=== PATIENT | female | born 1960 | race African-American/Black ===

== ENCOUNTER 2024-10-02 23:55 | Inpatient (IN) | payer MEDICARE, SELFPAY ==
--- NOTE | ~2024-10-02 | CT_ITS ---
CLINICAL HISTORY: sharp head pain CT head without contrast Comparison: None Findings: No acute hemorrhage. Basal ganglia calcifications. No extra-axial fluid collection. No hydrocephalus, mass-effect or herniation. Velázquez-white differentiation is maintained. White matter is within normal limits for age. No acute orbital pathology. No acute soft tissue abnormality. No fracture. The visualized paranasal sinuses are predominantly clear. The mastoid air cells are clear. Impression: No acute findings. This document has been electronically signed by: Louann Prado MD on 10/03/2024 18:16:40
[2024-10-03 00:19] VITALS: BMI 33.2
[2024-10-03 00:22] VITALS: BP 150/87; PULSE 102; RESP 16; TEMP 36.6; O2SAT 98
--- NOTE | 2024-10-03 01:28 | PC.NURSE ---
Admission Note Rupa Raman, 64 years old woman was presented to [facility] ED for suicidal ideation with plan and intent to OD on sleeping meds, she made suicidal statements to her landlord, triggered by eviction notice news. The patient lives with her daughter. The patient has a medical and psychiatric history of Hypertension, Asthma, Fibromyalgia, unspecified depression, and Schizoaffetic Disorder, depressive type. The patient is full code and has no known allergies. Rupa arrived at our unit in a stretcher at 1210 on 10/03/24, Sec-12 B, with an admitting diagnosis of Schizoaffective disorder, depressive type. The patient is alert and oriented x 4,? calm, pleasant, compliant with the admission process.? Ambulates independently with walker, high fall risk due to recent fall at home, Denied HI/AVH, reported her depression 10 and anxiety 07/02,? no visible skin issues observed,? Meds rec completed/approved/MAR active/takes meds whole, reported her elimination intact.? Lab work is unremarkable, UA negative, Utox positive for THC(use balm), treatment plan/safety tool/ release paper/notice of rights of temporary involuntary hospitalization all signed and filed, unit orientation completed, contraband searched, patient contracted for the safety, patient is being observed on 5 minutes safety check as ordered.?
[2024-10-03] MEDS: ALPRAZolam 0.5 MG TABLET 1 MG PO ×2 (02:14→21:02)
[2024-10-03 07:39] LABS: Alanine Aminotransferase 11 U/L (0-31); Alkaline Phosphatase 47 U/L (39-117); Anion Gap 11 (12-20); Aspartate Amino Transferase 16 U/L (5-31); Bilirubin Total 0.5 mg/dL (0.0-1.0); Blood Urea Nitrogen 24 mg/dL (9-16); Calcium 8.6 mg/dL (8.4-10.2); Carbon Dioxide 25 mmol/L (22-29); Chloride 106 mmol/L (96-108); Creatinine Clr Calc Pharmacy 58.7; Estimated Glomerular Filt Rate 55; Glucose Random 108 mg/dL (60-115); Potassium 3.4 mmol/L (3.3-5.1); Sodium 139 mmol/L (135-145); Total Protein 6.9 g/dL (6.5-8.0)
[2024-10-03 08:38] VITALS: BP 130/63; PULSE 102; RESP 18; TEMP 36.9; O2SAT 100
[2024-10-03] MEDS: Famotidine 20 MG TABLET PO ×2 (08:44→20:56)
[2024-10-03] MEDS: Valsartan 80 MG TABLET PO (08:44)
[2024-10-03] MEDS: Gabapentin 300 MG CAPSULE 600 MG PO ×3 (08:44→20:57)
[2024-10-03] MEDS: DULoxetine HCl 30 MG CAPSULE.DR PO (08:44)
[2024-10-03] MEDS: amLODIPine Besylate 10 MG TABLET PO (08:44)
--- NOTE | 2024-10-03 12:13 | HO.PM.IMCN ---
History of Present Illness Data of Consult Service Date: 10/03/24 Primary Care Provider: Unknown Physician [facility] Reason for consult: Admission H&P Pt is a 64-year-old female with a PMH significant for?asthma, HTN, fibromyalgia, GERD, and depression who is admitted to [facility] for increased depression with SI and HI. Pt apparently was facing eviction and reported to her landlord SI with intent to overdose on sleeping medications. Pt also endorsed HI with wanting to kill her family since she believed they were trying to kill her. Medical consult for admission H&P. Pt overall is a rather poor and vague historian. Reports taking some for medications at home, though also seemingly indicates that she has stopped home medications because she did not think that she needed them any longer. Overall medication compliance uncertain. Pt complains of almost daily intermittent headaches that come and go of varying duration, no clear alleviating or precipitating factors. Also complains of chronic left foot pain she states is secondary to bone spurs. Also occasionally gets palpitations and shortness a breath, though nothing currently acute. No chest pain or pressure. Denies fever, chills, nausea, vomiting, abdominal pain. Denies acute vision changes. Currently no difficulty breathing. Review of Systems Review of Systems: Negative except for that which is stated in the HPI [facility] Medical History (Updated 10/03/24 @ 14:17 by ANA Falcon) Asthma Fibromyalgia Hypertension Social History Household Members: Children Housing: Apartment Do you presently have visiting nurse or other home services: No Patient Tobacco Use Status: Never used Tobacco e-Cigarette/Vaping Use: Never Used Use of substances other than those prescribed or required for medical reasons: Yes Substance Use Type: Marijuana Currently Displaying Signs/Symptoms of Drug Intoxication Withdrawal: No Have you been hit, kicked, punched, or otherwise hurt by someone within the past year? If so, by whom?: No Do you feel safe in your current relationship?: No Current Relationship Is there a partner from a previous relationship who is making you feel unsafe now?: No Advance Directives: No Advance Directives Information Provided: Yes Do you have thoughts of harming others: None Do you have a plan to hurt others: No Plan Recently lost weight without trying: Unsure How much weight loss: 2-13 pounds Eating poorly because of decreased appetite: Yes Nutrition screen score: 4 Nutrition Risks: Poor intake 0-25% >4 days Patient : No : No Poor oral hygiene: No Meds Allergies Allergy/AdvReac Type Severity Reaction Status Date / Time No Known Allergies Allergy Verified 10/02/24 23:59 Active Medications: Current Medications Acetaminophen (Acetaminophen 325 Mg Tablet) 650 mg PO Q6H PRN PRN Reason: Headache/Pain Mild Scale (1-3) Al Hydroxide/Mg Hydroxide (Magnesium Hydrox/Alum Hydrox 30 Ml Oral.Susp) 30 ml PO Q6H PRN PRN Reason: Heartburn/Nausea Albuterol Sulfate (Albuterol Sulfate 90 Mcg 8 Gm Inhaler) 2 puff INHALE Q4H PRN PRN Reason: Shortness Of Breath Or Wheezing Alprazolam (Alprazolam 0.5 Mg Tablet) 1 mg PO BID PRN PRN Reason: Anxiety Amlodipine Besylate (Amlodipine Besylate 10 Mg Tablet) 10 mg PO DAILY [facility] Last Admin: 10/03/24 08:44 Dose: 10 mg Duloxetine HCl (Duloxetine Hcl 30 Mg Capsule.Dr) 30 mg PO DAILY [facility] Last Admin: 10/03/24 08:44 Dose: 30 mg Famotidine (Famotidine 20 Mg Tablet) 20 mg PO BID [facility] Last Admin: 10/03/24 08:44 Dose: 20 mg Gabapentin (Gabapentin 300 Mg Capsule) 600 mg PO TID [facility] Last Admin: 10/03/24 08:44 Dose: 600 mg Magnesium Hydroxide (Milk Of Magnesia 30 Ml Oral.Susp) 30 ml PO DAILY PRN PRN Reason: Constipation Nicotine (Nicotine 21 Mg Patch.Td24) 21 mg TRANSDERMA DAILY PRN PRN Reason: smoking cessation Nicotine Polacrilex (Nicotine Polacrilex 2 Mg Gum) 4 mg BUCCAL Q2H PRN PRN Reason: Nicotine Cravings Olanzapine (Olanzapine 2.5 Mg Tablet) 2.5 mg PO TID PRN PRN Reason: agitation Trazodone HCl (Trazodone Hcl 50 Mg Tablet) 50 mg PO BEDTIME MRX1 PRN PRN Reason: Insomnia Valsartan (Valsartan 80 Mg Tablet) 80 mg PO DAILY [facility] Last Admin: 10/03/24 08:44 Dose: 80 mg Home Medications ?Medication ?Instructions ?Recorded ?Confirmed ?Last Taken ?Type albuterol sulfate 90 mcg/actuation 2 puff inhalation Q4-5H PRN 10/03/24 10/03/24 Unknown History aerosol inhaler Shortness Of Breath Or Wheezing alprazolam 1 mg tablet 1 mg PO BID PRN anxiety attack 10/03/24 10/03/24 Unknown History amlodipine 10 mg-olmesartan 20 mg 1 tab PO DAILY 10/03/24 10/03/24 Unknown History tablet duloxetine 30 mg capsule,delayed 30 mg PO DAILY 10/03/24 10/03/24 Unknown History release famotidine 20 mg tablet 20 mg PO BID 10/03/24 10/03/24 Unknown History gabapentin 600 mg tablet 600 mg PO TID 10/03/24 10/03/24 Unknown History Physical Exam Vital Signs and Narrative: Vital Signs: Last Vital Signs Temp 98.4 F 10/03/24 08:38 Pulse 102 H 10/03/24 08:38 Resp 18 10/03/24 08:38 BP 130/63 10/03/24 08:38 Pulse Ox 100 10/03/24 08:38 O2 Del Method Room Air 10/03/24 08:38 BMI result Body Mass Index 33.2 General: AOx3, no acute distress Resp: CTA bilaterally. No wheezing, rales, or rhonchi. CVS: Regularly irregular rhythm. No murmurs, rubs, or gallops appreciated. GI: +BS, NT, no distention Skin: Warm, dry Neuro: Cranial nerves II-XII grossly intact bilaterally. Motor grossly intact bilaterally Extremities: No edema Psych: Flat affect, seems depressed Results Labs 10/03/24 07:12 Labs: Laboratory Results - last 24 hr 10/03/24 07:12 Anion Gap 11 L Estim Creat Clear Calc 58.7 Estimated GFR 55 Random Glucose 108 Calcium 8.6 Total Bilirubin 0.5 AST 16 ALT 11 Alkaline Phosphatase 47 Total Protein 6.9 Albumin 4.0 Assessment and Plan (1) Medical clearance for psychiatric admission: Status: Acute Plan Pt is a 64-year-old female with a PMH significant for?asthma, HTN, fibromyalgia, GERD, and depression who is admitted to [facility] for increased depression with SI and HI. Pt apparently was facing eviction and reported to her landlord SI with intent to overdose on sleeping medications. Pt also endorsed HI with wanting to kill her family since she believed they were trying to kill her. Medical consult for admission H&P. Mood disorder Plan as per Psychiatry HTN Continue amlodipine, valsartan Fibromyalgia Continue gabapentin Asthma Not in acute exacerbation Continue home inhaler GERD Continue famotidine Thank you for allowing us to participate in the care of this patient. Signing off at this time. Please re-consult if any acute complaints or issues arise.
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
[2024-10-03] MEDS: DULoxetine HCl 60 MG CAPSULE.DR PO (15:49)
[2024-10-03 20:00] VITALS: BP 140/70; PULSE 79; RESP 18; TEMP 36.5; O2SAT 98
[2024-10-03] MEDS: Mirtazapine 15 MG TABLET PO (20:57)
[2024-10-03] MEDS: traZODone HCL 50 MG TABLET PO (21:02)
[2024-10-04 08:00] VITALS: BP 165/76; PULSE 87; RESP 18; TEMP 36.4; O2SAT 99
[2024-10-04] MEDS: Famotidine 20 MG TABLET PO ×2 (08:26→19:52)
[2024-10-04] MEDS: amLODIPine Besylate 10 MG TABLET PO (08:26)
[2024-10-04] MEDS: DULoxetine HCl 30 MG CAPSULE.DR 90 MG PO (08:27)
[2024-10-04] MEDS: Valsartan 80 MG TABLET PO (08:27)
[2024-10-04] MEDS: Gabapentin 300 MG CAPSULE 600 MG PO ×3 (08:27→19:52)
[2024-10-04 08:29] LABS: Estimated Average Glucose 103 mg/dL; Hemoglobin A1C 112.5999 umol/L; Hemoglobin A1c % 5.2 % (<6.0); Total Hemoglobin (HGBA1C) 3335.1083 umol/L
[2024-10-04 08:37] LABS: Cholesterol 255 mg/dL (<200); HDL Cholesterol 51 mg/dL (>40); LDL Cholesterol Calculated 181 mg/dL (<100); Triglycerides 118 mg/dL (<150)
[2024-10-04 08:51] LABS: TSH reflex Free T4 1.22 uIU/mL (0.32-4.0)
[2024-10-04] MEDS: Albuterol Sulfate 90 MCG 8 GM INHALER 2 PUFF INHALE (16:12)
[2024-10-04 16:45] LABS: Folate 15.8 ng/mL (> or = 4.0); Vitamin B12 1005 pg/mL (200-900)
[2024-10-04 19:50] VITALS: BP 144/73; PULSE 60; RESP 16; TEMP 36.1; O2SAT 98
[2024-10-04] MEDS: Mirtazapine 15 MG TABLET PO (19:52)
--- NOTE | 2024-10-04 20:24 | HO.PSYCHPN ---
Subjective Subjective Date of Service: 10/04/24 Reason For Visit: Unspecified Psychosis Subjective Notes: Conditional Voluntary Interim History: Pt reports she slept better. She reports feeling calmer, less overwhelmed. Her children are coming out of state to visit and she is looking forward to see them. She has been visible on the unit, social with select peers. No behavioral concerns. Review of Systems Review of Systems intermittent sharp pain on head No changes in vision. No vomiting. Pt reports unintended weight loss in last year. Constipation Yes all other systems are reviewed and are negative Mental Status Exam Mental Status Exam Narrative: Appearance: wearing hospital gown, fair hygiene, in NAD Behavior: cooperative Psychomotor: no agitation or retardation noted Speech: clear, normal rate/rhythm/volume, spontaneous TP: linear TC: overwhelmed, but not suicidal Mood: tired Affect: overwhelmed, upset SI: passive but no intent or plan HI: none VH/AH: none Delusions: none Insight/judgment: fair x 2. Memory/cog: alert, oriented x 3. grossly intact to conversational testing but no formal testing. Diagnostics Vital Signs (24Hr): Vital Signs - 24 hr 10/04/24 08:00 10/04/24 19:50 Temperature 97.6 F 97 F Pulse Rate 87 60 Respiratory Rate 18 16 Blood Pressure 165/76 H 144/73 H Pulse Oximetry 99 98 Oxygen Delivery Method Room Air Room Air BMI result Body Mass Index 33.2 Labs 10/03/24 07:12 Labs: Laboratory Results - last 48 hr 10/03/24 10/04/24 10/04/24 07:12 07:39 15:02 Sodium 139 Potassium 3.4 Chloride 106 Carbon Dioxide 25 Anion Gap 11 L BUN 24 H Creatinine 1.01 Estim Creat Clear Calc 58.7 Estimated GFR 55 Random Glucose 108 Estimat Average Glucose 103 Hemoglobin A1c % 5.2 Calcium 8.6 Total Bilirubin 0.5 AST 16 ALT 11 Alkaline Phosphatase 47 Total Protein 6.9 Albumin 4.0 Triglycerides 118 Cholesterol 255 H LDL Cholesterol, Calc 181 H HDL Cholesterol 51 Vitamin B12 1005 H 25-OH Vitamin D Total 40.0 Folate 15.8 TSH 1.22 Medications Medications Current Medications Acetaminophen (Acetaminophen 325 Mg Tablet) 650 mg PO Q6H PRN PRN Reason: Headache/Pain Mild Scale (1-3) Acetaminophen/Butalbital/Caffeine (Butalb/Acetamin/Caff 50/325/40 Tablet) 1 tab PO Q4H PRN PRN Reason: Migraine Headache Al Hydroxide/Mg Hydroxide (Magnesium Hydrox/Alum Hydrox 30 Ml Oral.Susp) 30 ml PO Q6H PRN PRN Reason: Heartburn/Nausea Albuterol Sulfate (Albuterol Sulfate 90 Mcg 8 Gm Inhaler) 2 puff INHALE Q4H PRN PRN Reason: Shortness Of Breath Or Wheezing Last Admin: 10/04/24 16:12 Dose: 2 puff Alprazolam (Alprazolam 0.5 Mg Tablet) 1 mg PO BID PRN PRN Reason: Anxiety Last Admin: 10/03/24 21:02 Dose: 1 mg Amlodipine Besylate (Amlodipine Besylate 10 Mg Tablet) 10 mg PO DAILY [facility] Last Admin: 10/04/24 08:26 Dose: 10 mg Duloxetine HCl (Duloxetine Hcl 30 Mg Capsule.Dr) 90 mg PO DAILY [facility] Last Admin: 10/04/24 08:27 Dose: 90 mg Famotidine (Famotidine 20 Mg Tablet) 20 mg PO BID [facility] Last Admin: 10/04/24 19:52 Dose: 20 mg Gabapentin (Gabapentin 300 Mg Capsule) 600 mg PO TID [facility] Last Admin: 10/04/24 19:52 Dose: 600 mg Magnesium Hydroxide (Milk Of Magnesia 30 Ml Oral.Susp) 30 ml PO DAILY PRN PRN Reason: Constipation Mirtazapine (Mirtazapine 15 Mg Tablet) 15 mg PO BEDTIME [facility] Last Admin: 10/04/24 19:52 Dose: 15 mg Nicotine (Nicotine 21 Mg Patch.Td24) 21 mg TRANSDERMA DAILY PRN PRN Reason: smoking cessation Nicotine Polacrilex (Nicotine Polacrilex 2 Mg Gum) 4 mg BUCCAL Q2H PRN PRN Reason: Nicotine Cravings Olanzapine (Olanzapine 2.5 Mg Tablet) 2.5 mg PO TID PRN PRN Reason: agitation Trazodone HCl (Trazodone Hcl 50 Mg Tablet) 50 mg PO BEDTIME MRX1 PRN PRN Reason: Insomnia Last Admin: 10/03/24 21:02 Dose: 50 mg Valsartan (Valsartan 80 Mg Tablet) 80 mg PO DAILY [facility] Last Admin: 10/04/24 08:27 Dose: 80 mg Allergies Allergies Allergy/AdvReac Type Severity Reaction Status Date / Time No Known Allergies Allergy Verified 10/02/24 23:59 Assessment & Plan Assessment & Plan (1) MDD (major depressive disorder), recurrent episode, moderate: Status: Acute Code(s): F33.1 - Major depressive disorder, recurrent, moderate Plan 10/04 continue tx. Reason for continued inpatient stay Substantial Risk for: harm to self Time Spent With Patient Time: Total time managing care of this patient today ____ minutes.
[2024-10-04] MEDS: ALPRAZolam 0.5 MG TABLET 1 MG PO (20:36)
[2024-10-05 08:00] VITALS: BP 146/65; PULSE 65; RESP 18; TEMP 36; O2SAT 99
[2024-10-05] MEDS: Gabapentin 300 MG CAPSULE 600 MG PO ×3 (08:27→19:52)
[2024-10-05] MEDS: amLODIPine Besylate 10 MG TABLET PO (08:27)
[2024-10-05] MEDS: Valsartan 80 MG TABLET PO (08:27)
[2024-10-05] MEDS: Famotidine 20 MG TABLET PO ×2 (08:27→19:52)
[2024-10-05] MEDS: DULoxetine HCl 30 MG CAPSULE.DR 90 MG PO (08:28)
[2024-10-05] MEDS: traMADoL HCL 50 MG TABLET 25 MG PO (12:46)
--- NOTE | 2024-10-05 16:42 | HO.PSYCHPN ---
Subjective Subjective Date of Service: 10/05/24 Reason For Visit: Unspecified Psychosis Interim History: Met with patient; discussed with team Patient reports that she is depressed; policy writer sales reviewed medications with her and that mirtazapine was recently started; also discussed possibly increasing Cymbalta further. Patient complaining of chronic back pain. She reports history of protruding disc, chronic back pain that comes and goes and says she used to be on Vicodin. Fish Straightener had given her tramadol which she said was helpful and asked if it could be continued as a p.r.n.. Mental Status Exam Mental Status Exam Narrative: Appearance: wearing hospital gown, fair hygiene, in NAD Behavior: cooperative Psychomotor: no agitation or retardation noted Speech: clear, normal rate/rhythm/volume, spontaneous TP: linear TC: overwhelmed; psychosocial stressors Mood: Depressed Affect: Anxious Eye contact: Avoidant SI: passive but no intent or plan HI: none VH/AH: none Delusions: none Insight/judgment: Impaired Alert and oriented Diagnostics Vital Signs (24Hr): Vital Signs - 24 hr 10/04/24 19:50 10/05/24 08:00 Temperature 97 F 96.8 F Pulse Rate 60 65 Respiratory Rate 16 18 Blood Pressure 144/73 H 146/65 H Pulse Oximetry 98 99 Oxygen Delivery Method Room Air Room Air BMI result Body Mass Index 33.2 Labs 10/03/24 07:12 Labs: Laboratory Results - last 48 hr 10/04/24 10/04/24 07:39 15:02 Estimat Average Glucose 103 Hemoglobin A1c % 5.2 Triglycerides 118 Cholesterol 255 H LDL Cholesterol, Calc 181 H HDL Cholesterol 51 Vitamin B12 1005 H 25-OH Vitamin D Total 40.0 Folate 15.8 TSH 1.22 Medications Medications Current Medications Acetaminophen (Acetaminophen 325 Mg Tablet) 650 mg PO Q6H PRN PRN Reason: Headache/Pain Mild Scale (1-3) Acetaminophen/Butalbital/Caffeine (Butalb/Acetamin/Caff 50/325/40 Tablet) 1 tab PO Q4H PRN PRN Reason: Migraine Headache Al Hydroxide/Mg Hydroxide (Magnesium Hydrox/Alum Hydrox 30 Ml Oral.Susp) 30 ml PO Q6H PRN PRN Reason: Heartburn/Nausea Albuterol Sulfate (Albuterol Sulfate 90 Mcg 8 Gm Inhaler) 2 puff INHALE Q4H PRN PRN Reason: Shortness Of Breath Or Wheezing Last Admin: 10/04/24 16:12 Dose: 2 puff Alprazolam (Alprazolam 0.5 Mg Tablet) 1 mg PO BID PRN PRN Reason: Anxiety Last Admin: 10/04/24 20:36 Dose: 1 mg Amlodipine Besylate (Amlodipine Besylate 10 Mg Tablet) 10 mg PO DAILY [facility] Last Admin: 10/05/24 08:27 Dose: 10 mg Duloxetine HCl (Duloxetine Hcl 30 Mg Capsule.Dr) 90 mg PO DAILY [facility] Last Admin: 10/05/24 08:28 Dose: 90 mg Famotidine (Famotidine 20 Mg Tablet) 20 mg PO BID [facility] Last Admin: 10/05/24 08:27 Dose: 20 mg Gabapentin (Gabapentin 300 Mg Capsule) 600 mg PO TID [facility] Last Admin: 10/05/24 14:36 Dose: 600 mg Magnesium Hydroxide (Milk Of Magnesia 30 Ml Oral.Susp) 30 ml PO DAILY PRN PRN Reason: Constipation Mirtazapine (Mirtazapine 15 Mg Tablet) 15 mg PO BEDTIME [facility] Last Admin: 10/04/24 19:52 Dose: 15 mg Nicotine (Nicotine 21 Mg Patch.Td24) 21 mg TRANSDERMA DAILY PRN PRN Reason: smoking cessation Nicotine Polacrilex (Nicotine Polacrilex 2 Mg Gum) 4 mg BUCCAL Q2H PRN PRN Reason: Nicotine Cravings Olanzapine (Olanzapine 2.5 Mg Tablet) 2.5 mg PO TID PRN PRN Reason: agitation Trazodone HCl (Trazodone Hcl 50 Mg Tablet) 50 mg PO BEDTIME MRX1 PRN PRN Reason: Insomnia Last Admin: 10/03/24 21:02 Dose: 50 mg Valsartan (Valsartan 80 Mg Tablet) 80 mg PO DAILY [facility] Last Admin: 10/05/24 08:27 Dose: 80 mg Allergies Allergies Allergy/AdvReac Type Severity Reaction Status Date / Time No Known Allergies Allergy Verified 10/02/24 23:59 Assessment & Plan Assessment & Plan (1) MDD (major depressive disorder), recurrent episode, moderate: Status: Acute Code(s): F33.1 - Major depressive disorder, recurrent, moderate Plan 10/04 continue tx. 10/05 Patient reports that she is depressed; policy writer sales reviewed medications with her and that mirtazapine was recently started; also discussed possibly increasing Cymbalta further. Patient complaining of chronic back pain. She reports history of protruding disc, chronic back pain that comes and goes and says she used to be on Vicodin. Fish Straightener had given her tramadol which she said was helpful and asked if it could be continued as a p.r.n.. -Add tramadol 50mg daily prn for severe pain -otherwise continue current tx plan (mirtazapine recently started) Patient educated on: diagnosis, medication risk/benefits and medical condition Informed Consent: understands Reason for continued inpatient stay Substantial Risk for: rapid decompensation Time Spent With Patient Time: Total time managing care of this patient today ____ minutes.
[2024-10-05 19:51] VITALS: BP 136/58; PULSE 90; RESP 16; TEMP 36.3; O2SAT 100
[2024-10-05] MEDS: ALPRAZolam 0.5 MG TABLET 1 MG PO (19:52)
[2024-10-05] MEDS: Mirtazapine 15 MG TABLET PO (19:52)
[2024-10-06 07:55] VITALS: BP 120/64; PULSE 74; RESP 18; TEMP 36.8; O2SAT 99
[2024-10-06] MEDS: DULoxetine HCl 30 MG CAPSULE.DR 90 MG PO (08:07)
[2024-10-06] MEDS: amLODIPine Besylate 10 MG TABLET PO (08:07)
[2024-10-06] MEDS: Valsartan 80 MG TABLET PO (08:08)
[2024-10-06] MEDS: Gabapentin 300 MG CAPSULE 600 MG PO ×3 (08:08→20:15)
[2024-10-06] MEDS: Famotidine 20 MG TABLET PO ×2 (08:08→20:15)
--- NOTE | 2024-10-06 10:09 | P.PNPSI_ITS ---
Subjective Subjective Date of Service: 10/06/24 Reason For Visit: Unspecified Psychosis Subjective Notes: Conditional Voluntary Interim History: Pt slept through the night. She reports remeron helping with this. She has lower intermittent back pain and reports she has been in bed due to pain. She had visit from family on Saturday which she reports was very helpful. She reports she feels less overwhelmed but still not sure about herself. No plan or intent to harm self. discussed increasing cymbalta 120mg po daily. family meeting scheduled in 2 days. Medication Compliance: Yes Side effects from medications: No Attending Groups: Intermittent Review of Systems Review of Systems intermittent sharp pain on head No changes in vision. No vomiting. Pt reports unintended weight loss in last year. Constipation Yes all other systems are reviewed and are negative Mental Status Exam Mental Status Exam Narrative: Appearance: wearing hospital gown, fair hygiene, in NAD Behavior: cooperative Psychomotor: no agitation or retardation noted Speech: clear, normal rate/rhythm/volume, spontaneous TP: linear TC: overwhelmed, but not suicidal Mood: better Affect: overwhelmed, upset SI: denies HI: none VH/AH: none Delusions: none Insight/judgment: fair x 2. Memory/cog: alert, oriented x 3. grossly intact to conversational testing but no formal testing. Diagnostics Vital Signs (24Hr): Vital Signs - 24 hr 10/05/24 19:51 10/06/24 07:55 Temperature 97.3 F 98.2 F Pulse Rate 90 74 Respiratory Rate 16 18 Blood Pressure 136/58 L 120/64 Pulse Oximetry 100 99 Oxygen Delivery Method Room Air Room Air BMI result Body Mass Index 33.2 Labs 10/03/24 07:12 Labs: Laboratory Results - last 48 hr 10/04/24 15:02 Vitamin B12 1005 H 25-OH Vitamin D Total 40.0 Folate 15.8 Medications Medications Current Medications Acetaminophen (Acetaminophen 325 Mg Tablet) 650 mg PO Q6H PRN PRN Reason: Headache/Pain Mild Scale (1-3) Acetaminophen/Butalbital/Caffeine (Butalb/Acetamin/Caff 50/325/40 Tablet) 1 tab PO Q4H PRN PRN Reason: Migraine Headache Al Hydroxide/Mg Hydroxide (Magnesium Hydrox/Alum Hydrox 30 Ml Oral.Susp) 30 ml PO Q6H PRN PRN Reason: Heartburn/Nausea Albuterol Sulfate (Albuterol Sulfate 90 Mcg 8 Gm Inhaler) 2 puff INHALE Q4H PRN PRN Reason: Shortness Of Breath Or Wheezing Last Admin: 10/04/24 16:12 Dose: 2 puff Alprazolam (Alprazolam 0.5 Mg Tablet) 1 mg PO BID PRN PRN Reason: Anxiety Last Admin: 10/05/24 19:52 Dose: 1 mg Amlodipine Besylate (Amlodipine Besylate 10 Mg Tablet) 10 mg PO DAILY [facility] Last Admin: 10/06/24 08:07 Dose: 10 mg Duloxetine HCl (Duloxetine Hcl 30 Mg Capsule.Dr) 90 mg PO DAILY [facility] Last Admin: 10/06/24 08:07 Dose: 90 mg Famotidine (Famotidine 20 Mg Tablet) 20 mg PO BID [facility] Last Admin: 10/06/24 08:08 Dose: 20 mg Gabapentin (Gabapentin 300 Mg Capsule) 600 mg PO TID [facility] Last Admin: 10/06/24 08:08 Dose: 600 mg Magnesium Hydroxide (Milk Of Magnesia 30 Ml Oral.Susp) 30 ml PO DAILY PRN PRN Reason: Constipation Mirtazapine (Mirtazapine 15 Mg Tablet) 15 mg PO BEDTIME [facility] Last Admin: 10/05/24 19:52 Dose: 15 mg Nicotine (Nicotine 21 Mg Patch.Td24) 21 mg TRANSDERMA DAILY PRN PRN Reason: smoking cessation Nicotine Polacrilex (Nicotine Polacrilex 2 Mg Gum) 4 mg BUCCAL Q2H PRN PRN Reason: Nicotine Cravings Olanzapine (Olanzapine 2.5 Mg Tablet) 2.5 mg PO TID PRN PRN Reason: agitation Tramadol HCl (Tramadol Hcl 50 Mg Tablet) 50 mg PO DAILY PRN PRN Reason: Pain, Severe (Pain Scale 7-10) Trazodone HCl (Trazodone Hcl 50 Mg Tablet) 50 mg PO BEDTIME MRX1 PRN PRN Reason: Insomnia Last Admin: 10/03/24 21:02 Dose: 50 mg Valsartan (Valsartan 80 Mg Tablet) 80 mg PO DAILY [facility] Last Admin: 10/06/24 08:08 Dose: 80 mg Allergies Allergies Allergy/AdvReac Type Severity Reaction Status Date / Time No Known Allergies Allergy Verified 10/02/24 23:59 Assessment & Plan Assessment & Plan (1) MDD (major depressive disorder), recurrent episode, moderate: Status: Acute Code(s): F33.1 - Major depressive disorder, recurrent, moderate Plan 10/04 continue tx. 10/06- increase cymbalta 120mg po daily. continue remeron 15mg po qhs. fam meeting in 2 days. Reason for continued inpatient stay Substantial Risk for: inability to function Time Spent With Patient Time: Total time managing care of this patient today ____ minutes.
[2024-10-06] MEDS: ALPRAZolam 0.5 MG TABLET 1 MG PO (15:58)
[2024-10-06 20:00] VITALS: BP 164/76; PULSE 82; RESP 16; TEMP 36.3; O2SAT 98
[2024-10-06] MEDS: Mirtazapine 15 MG TABLET PO (20:15)
[2024-10-06] MEDS: traZODone HCL 50 MG TABLET PO (21:33)
[2024-10-06] MEDS: OLANZapine 2.5 MG TABLET PO (21:33)
[2024-10-07 08:00] VITALS: BP 150/72; PULSE 62; RESP 18; TEMP 36.6; O2SAT 99
[2024-10-07] MEDS: Gabapentin 300 MG CAPSULE 600 MG PO ×3 (08:19→21:17)
[2024-10-07] MEDS: Valsartan 80 MG TABLET PO (08:19)
[2024-10-07] MEDS: amLODIPine Besylate 10 MG TABLET PO (08:19)
[2024-10-07] MEDS: DULoxetine HCl 30 MG CAPSULE.DR 90 MG PO (08:19)
[2024-10-07] MEDS: Famotidine 20 MG TABLET PO ×2 (08:19→21:17)
--- NOTE | 2024-10-07 10:44 | P.PNPSI_ITS ---
Subjective Subjective Date of Service: 10/07/24 Reason For Visit: Unspecified Psychosis Subjective Notes: Conditional Voluntary Interim History: Pt reports feeling calmer, less overwhelmed. She denies SI/HI. She has been visible on the unit. She has attended some groups. We had family meeting- family very supportive. Pt agreed to be referred to psychiatric services. Medication Compliance: Yes Side effects from medications: No Attending Groups: Intermittent Review of Systems Review of Systems intermittent sharp pain on head No changes in vision. No vomiting. Pt reports unintended weight loss in last year. Constipation Yes all other systems are reviewed and are negative Mental Status Exam Mental Status Exam Narrative: Appearance: wearing hospital gown, fair hygiene, in NAD Behavior: cooperative Psychomotor: no agitation or retardation noted Speech: clear, normal rate/rhythm/volume, spontaneous TP: linear TC: overwhelmed; psychosocial stressors Mood: Depressed Affect: Anxious Eye contact: Avoidant SI: passive but no intent or plan HI: none VH/AH: none Delusions: none Insight/judgment: Impaired Alert and oriented Diagnostics Vital Signs (24Hr): Vital Signs - 24 hr 10/06/24 20:00 10/07/24 08:00 Temperature 97.4 F 97.9 F Pulse Rate 82 62 Respiratory Rate 16 18 Blood Pressure 164/76 H 150/72 H Pulse Oximetry 98 99 Oxygen Delivery Method Room Air Room Air BMI result Body Mass Index 33.2 Labs 10/03/24 07:12 Medications Medications Current Medications Acetaminophen (Acetaminophen 325 Mg Tablet) 650 mg PO Q6H PRN PRN Reason: Headache/Pain Mild Scale (1-3) Acetaminophen/Butalbital/Caffeine (Butalb/Acetamin/Caff 50/325/40 Tablet) 1 tab PO Q4H PRN PRN Reason: Migraine Headache Al Hydroxide/Mg Hydroxide (Magnesium Hydrox/Alum Hydrox 30 Ml Oral.Susp) 30 ml PO Q6H PRN PRN Reason: Heartburn/Nausea Albuterol Sulfate (Albuterol Sulfate 90 Mcg 8 Gm Inhaler) 2 puff INHALE Q4H PRN PRN Reason: Shortness Of Breath Or Wheezing Last Admin: 10/04/24 16:12 Dose: 2 puff Alprazolam (Alprazolam 0.5 Mg Tablet) 1 mg PO BID PRN PRN Reason: Anxiety Last Admin: 10/06/24 15:58 Dose: 1 mg Amlodipine Besylate (Amlodipine Besylate 10 Mg Tablet) 10 mg PO DAILY [facility] Last Admin: 10/07/24 08:19 Dose: 10 mg Duloxetine HCl (Duloxetine Hcl 30 Mg Capsule.Dr) 90 mg PO DAILY [facility] Last Admin: 10/07/24 08:19 Dose: 90 mg Famotidine (Famotidine 20 Mg Tablet) 20 mg PO BID [facility] Last Admin: 10/07/24 08:19 Dose: 20 mg Gabapentin (Gabapentin 300 Mg Capsule) 600 mg PO TID [facility] Last Admin: 10/07/24 08:19 Dose: 600 mg Magnesium Hydroxide (Milk Of Magnesia 30 Ml Oral.Susp) 30 ml PO DAILY PRN PRN Reason: Constipation Mirtazapine (Mirtazapine 15 Mg Tablet) 15 mg PO BEDTIME [facility] Last Admin: 10/06/24 20:15 Dose: 15 mg Nicotine (Nicotine 21 Mg Patch.Td24) 21 mg TRANSDERMA DAILY PRN PRN Reason: smoking cessation Nicotine Polacrilex (Nicotine Polacrilex 2 Mg Gum) 4 mg BUCCAL Q2H PRN PRN Reason: Nicotine Cravings Olanzapine (Olanzapine 2.5 Mg Tablet) 2.5 mg PO TID PRN PRN Reason: agitation Last Admin: 10/06/24 21:33 Dose: 2.5 mg Tramadol HCl (Tramadol Hcl 50 Mg Tablet) 50 mg PO DAILY PRN PRN Reason: Pain, Severe (Pain Scale 7-10) Trazodone HCl (Trazodone Hcl 50 Mg Tablet) 50 mg PO BEDTIME MRX1 PRN PRN Reason: Insomnia Last Admin: 10/06/24 21:33 Dose: 50 mg Valsartan (Valsartan 80 Mg Tablet) 80 mg PO DAILY [facility] Last Admin: 10/07/24 08:19 Dose: 80 mg Allergies Allergies Allergy/AdvReac Type Severity Reaction Status Date / Time No Known Allergies Allergy Verified 10/02/24 23:59 Assessment & Plan Assessment & Plan (1) MDD (major depressive disorder), recurrent episode, moderate: Status: Acute Code(s): F33.1 - Major depressive disorder, recurrent, moderate Plan 10/04 continue tx. 10/06- increase cymbalta 120mg po daily. continue remeron 15mg po qhs. fam meeting in 2 days. 10/07 continue tx. plan for dc next Saturday or Saturday. Reason for continued inpatient stay Substantial Risk for: inability to function Time Spent With Patient Time: Total time managing care of this patient today ____ minutes.
[2024-10-07 20:00] VITALS: BP 133/61; PULSE 76; RESP 16; TEMP 36.4; O2SAT 98
[2024-10-07] MEDS: traZODone HCL 50 MG TABLET PO (21:17)
[2024-10-07] MEDS: ALPRAZolam 0.5 MG TABLET 1 MG PO (21:17)
[2024-10-07] MEDS: Mirtazapine 15 MG TABLET PO (21:17)
[2024-10-07] MEDS: OLANZapine 2.5 MG TABLET PO (21:17)
[2024-10-08 08:06] VITALS: BP 138/65; PULSE 81; RESP 20; TEMP 36.1; O2SAT 99
[2024-10-08] MEDS: DULoxetine HCl 60 MG CAPSULE.DR 120 MG PO (08:07)
[2024-10-08] MEDS: Valsartan 80 MG TABLET PO (08:08)
[2024-10-08] MEDS: Famotidine 20 MG TABLET PO ×2 (08:08→21:00)
[2024-10-08] MEDS: Gabapentin 300 MG CAPSULE 600 MG PO ×3 (08:08→21:00)
[2024-10-08] MEDS: amLODIPine Besylate 10 MG TABLET PO (08:08)
[2024-10-08] MEDS: Albuterol Sulfate 90 MCG 8 GM INHALER 2 PUFF INHALE (08:26)
[2024-10-08 14:35] VITALS: BMI 35.4
[2024-10-08 20:00] VITALS: BP 142/62; PULSE 99; RESP 18; TEMP 36.6; O2SAT 98
[2024-10-08] MEDS: Mirtazapine 30 MG TABLET PO (21:00)
[2024-10-08] MEDS: ALPRAZolam 0.5 MG TABLET 1 MG PO (21:01)
[2024-10-08] MEDS: OLANZapine 2.5 MG TABLET PO (21:01)
[2024-10-08] MEDS: traMADoL HCL 50 MG TABLET 100 MG PO (21:02)
[2024-10-09 10:04] VITALS: BP 126/66; PULSE 81; RESP 18; TEMP 36.3; O2SAT 98
[2024-10-09] MEDS: Famotidine 20 MG TABLET PO ×2 (10:05→21:11)
[2024-10-09] MEDS: DULoxetine HCl 60 MG CAPSULE.DR 120 MG PO (10:05)
[2024-10-09] MEDS: Gabapentin 300 MG CAPSULE 600 MG PO ×3 (10:06→21:12)
[2024-10-09] MEDS: Valsartan 80 MG TABLET PO (10:06)
[2024-10-09] MEDS: amLODIPine Besylate 10 MG TABLET PO (10:06)
--- NOTE | 2024-10-09 12:16 | HO.PSYCHPN ---
Subjective Subjective Date of Service: 10/09/24 Reason For Visit: Unspecified Psychosis Subjective Notes: Conditional Voluntary Interim History: Pt rreports she is sleeping better at times with remeron. She reports back pain is better today. 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 She denies SI/HI. She is concern about rent but feels more able to manage that. Medication Compliance: Yes Review of Systems Review of Systems intermittent sharp pain on head No changes in vision. No vomiting. Pt reports unintended weight loss in last year. Constipation Yes all other systems are reviewed and are negative Mental Status Exam Mental Status Exam Narrative: Appearance: wearing hospital gown, fair hygiene, in NAD Behavior: cooperative Psychomotor: no agitation or retardation noted Speech: clear, normal rate/rhythm/volume, spontaneous TP: linear TC: overwhelmed; psychosocial stressors Mood: Depressed Affect: Anxious Eye contact: Avoidant SI: passive but no intent or plan HI: none VH/AH: none Delusions: none Insight/judgment: Impaired Alert and oriented Diagnostics Vital Signs (24Hr): Vital Signs - 24 hr 10/08/24 20:00 10/09/24 10:04 Temperature 97.9 F 97.4 F Pulse Rate 99 81 Respiratory Rate 18 18 Blood Pressure 142/62 H 126/66 Pulse Oximetry 98 98 Oxygen Delivery Method Room Air Room Air BMI result Body Mass Index 35.4 Labs 10/03/24 07:12 Medications Medications Current Medications Acetaminophen (Acetaminophen 325 Mg Tablet) 650 mg PO Q6H PRN PRN Reason: Headache/Pain Mild Scale (1-3) Acetaminophen/Butalbital/Caffeine (Butalb/Acetamin/Caff 50/325/40 Tablet) 1 tab PO Q4H PRN PRN Reason: Migraine Headache Al Hydroxide/Mg Hydroxide (Magnesium Hydrox/Alum Hydrox 30 Ml Oral.Susp) 30 ml PO Q6H PRN PRN Reason: Heartburn/Nausea Albuterol Sulfate (Albuterol Sulfate 90 Mcg 8 Gm Inhaler) 2 puff INHALE Q4H PRN PRN Reason: Shortness Of Breath Or Wheezing Last Admin: 10/08/24 08:26 Dose: 2 puff Alprazolam (Alprazolam 0.5 Mg Tablet) 1 mg PO BID PRN PRN Reason: Anxiety Last Admin: 10/08/24 21:01 Dose: 1 mg Amlodipine Besylate (Amlodipine Besylate 10 Mg Tablet) 10 mg PO DAILY [facility] Last Admin: 10/09/24 10:06 Dose: 10 mg Duloxetine HCl (Duloxetine Hcl 60 Mg Capsule.Dr) 120 mg PO DAILY [facility] Last Admin: 10/09/24 10:05 Dose: 120 mg Famotidine (Famotidine 20 Mg Tablet) 20 mg PO BID [facility] Last Admin: 10/09/24 10:05 Dose: 20 mg Gabapentin (Gabapentin 300 Mg Capsule) 600 mg PO TID [facility] Last Admin: 10/09/24 10:06 Dose: 600 mg Magnesium Hydroxide (Milk Of Magnesia 30 Ml Oral.Susp) 30 ml PO DAILY PRN PRN Reason: Constipation Mirtazapine (Mirtazapine 30 Mg Tablet) 30 mg PO BEDTIME [facility] Last Admin: 10/08/24 21:00 Dose: 30 mg Nicotine (Nicotine 21 Mg Patch.Td24) 21 mg TRANSDERMA DAILY PRN PRN Reason: smoking cessation Nicotine Polacrilex (Nicotine Polacrilex 2 Mg Gum) 4 mg BUCCAL Q2H PRN PRN Reason: Nicotine Cravings Olanzapine (Olanzapine 2.5 Mg Tablet) 2.5 mg PO TID PRN PRN Reason: agitation Last Admin: 10/08/24 21:01 Dose: 2.5 mg Tramadol HCl (Tramadol Hcl 50 Mg Tablet) 100 mg PO DAILY PRN PRN Reason: Pain, Severe (Pain Scale 7-10) Last Admin: 10/08/24 21:02 Dose: 100 mg Valsartan (Valsartan 80 Mg Tablet) 80 mg PO DAILY [facility] Last Admin: 10/09/24 10:06 Dose: 80 mg Allergies Allergies Allergy/AdvReac Type Severity Reaction Status Date / Time No Known Allergies Allergy Verified 10/02/24 23:59 Assessment & Plan Assessment & Plan (1) MDD (major depressive disorder), recurrent episode, moderate: Status: Acute Code(s): F33.1 - Major depressive disorder, recurrent, moderate Plan 10/04 continue tx. 10/06- increase cymbalta 120mg po daily. continue remeron 15mg po qhs. fam meeting in 2 days. 10/07 continue tx. plan for dc next Saturday or Saturday. 10/08 remeron increased to 30mg po qhs. increase tramadol to 100mg po prn for severe pain. 10/09 continue tx. Reason for continued inpatient stay Substantial Risk for: inability to function Time Spent With Patient Time: Total time managing care of this patient today ____ minutes.
[2024-10-09 19:51] VITALS: BP 128/71; PULSE 81; TEMP 36.3; O2SAT 97
[2024-10-09] MEDS: ALPRAZolam 0.5 MG TABLET 1 MG PO (21:04)
[2024-10-09] MEDS: traMADoL HCL 50 MG TABLET 100 MG PO (21:06)
[2024-10-09] MEDS: Mirtazapine 30 MG TABLET PO (21:12)
[2024-10-10 08:00] VITALS: BP 131/62; PULSE 82; RESP 18; TEMP 36.7; O2SAT 98
[2024-10-10] MEDS: Gabapentin 300 MG CAPSULE 600 MG PO ×3 (08:18→20:33)
[2024-10-10] MEDS: Valsartan 80 MG TABLET PO (08:18)
[2024-10-10] MEDS: amLODIPine Besylate 10 MG TABLET PO (08:18)
[2024-10-10] MEDS: DULoxetine HCl 60 MG CAPSULE.DR 120 MG PO (08:18)
[2024-10-10] MEDS: Famotidine 20 MG TABLET PO ×2 (08:18→20:34)
--- NOTE | 2024-10-10 12:48 | P.PNPSI_ITS ---
Subjective Subjective Date of Service: 10/10/24 Reason For Visit: Unspecified Psychosis Subjective Notes: Conditional Voluntary Interim History: Patient was seen and discussed in rounds today. Records and plans were reviewed. She has been pleasant and cooperative. Compliant with her medications. She is hoping for discharge on Saturday which I believe is planned. No SI. No complaints. Review of Systems Review of Systems Yes all other systems are reviewed and are negative Mental Status Exam Mental Status Exam Narrative: Appearance: wearing hospital gown, fair hygiene, in NAD Behavior: cooperative Psychomotor: no agitation or retardation noted Speech: clear, normal rate/rhythm/volume, spontaneous TP: linear TC: overwhelmed; psychosocial stressors Mood: Depressed Affect: Anxious Eye contact: Avoidant SI: passive but no intent or plan HI: none VH/AH: none Delusions: none Insight/judgment: Impaired Alert and oriented Diagnostics Vital Signs (24Hr): Vital Signs - 24 hr 10/09/24 19:51 10/10/24 08:00 Temperature 97.4 F 98.1 F Pulse Rate 81 82 Respiratory Rate 18 Blood Pressure 128/71 131/62 Pulse Oximetry 97 98 Oxygen Delivery Method Room Air Room Air BMI result Body Mass Index 35.4 Labs 10/03/24 07:12 Medications Medications Current Medications Acetaminophen (Acetaminophen 325 Mg Tablet) 650 mg PO Q6H PRN PRN Reason: Headache/Pain Mild Scale (1-3) Acetaminophen/Butalbital/Caffeine (Butalb/Acetamin/Caff 50/325/40 Tablet) 1 tab PO Q4H PRN PRN Reason: Migraine Headache Al Hydroxide/Mg Hydroxide (Magnesium Hydrox/Alum Hydrox 30 Ml Oral.Susp) 30 ml PO Q6H PRN PRN Reason: Heartburn/Nausea Albuterol Sulfate (Albuterol Sulfate 90 Mcg 8 Gm Inhaler) 2 puff INHALE Q4H PRN PRN Reason: Shortness Of Breath Or Wheezing Last Admin: 10/08/24 08:26 Dose: 2 puff Alprazolam (Alprazolam 0.5 Mg Tablet) 1 mg PO BID PRN PRN Reason: Anxiety Last Admin: 10/09/24 21:04 Dose: 1 mg Amlodipine Besylate (Amlodipine Besylate 10 Mg Tablet) 10 mg PO DAILY [facility] Last Admin: 10/10/24 08:18 Dose: 10 mg Duloxetine HCl (Duloxetine Hcl 60 Mg Capsule.Dr) 120 mg PO DAILY [facility] Last Admin: 10/10/24 08:18 Dose: 120 mg Famotidine (Famotidine 20 Mg Tablet) 20 mg PO BID [facility] Last Admin: 10/10/24 08:18 Dose: 20 mg Gabapentin (Gabapentin 300 Mg Capsule) 600 mg PO TID [facility] Last Admin: 10/10/24 08:18 Dose: 600 mg Magnesium Hydroxide (Milk Of Magnesia 30 Ml Oral.Susp) 30 ml PO DAILY PRN PRN Reason: Constipation Mirtazapine (Mirtazapine 30 Mg Tablet) 30 mg PO BEDTIME [facility] Last Admin: 10/09/24 21:12 Dose: 30 mg Nicotine (Nicotine 21 Mg Patch.Td24) 21 mg TRANSDERMA DAILY PRN PRN Reason: smoking cessation Nicotine Polacrilex (Nicotine Polacrilex 2 Mg Gum) 4 mg BUCCAL Q2H PRN PRN Reason: Nicotine Cravings Olanzapine (Olanzapine 2.5 Mg Tablet) 2.5 mg PO TID PRN PRN Reason: agitation Last Admin: 10/08/24 21:01 Dose: 2.5 mg Tramadol HCl (Tramadol Hcl 50 Mg Tablet) 100 mg PO DAILY PRN PRN Reason: Pain, Severe (Pain Scale 7-10) Last Admin: 10/09/24 21:06 Dose: 100 mg Valsartan (Valsartan 80 Mg Tablet) 80 mg PO DAILY [facility] Last Admin: 10/10/24 08:18 Dose: 80 mg Allergies Allergies Allergy/AdvReac Type Severity Reaction Status Date / Time No Known Allergies Allergy Verified 10/02/24 23:59 Assessment & Plan Assessment & Plan (1) MDD (major depressive disorder), recurrent episode, moderate: Status: Acute Code(s): F33.1 - Major depressive disorder, recurrent, moderate Plan 10/04 continue tx. 10/06- increase cymbalta 120mg po daily. continue remeron 15mg po qhs. fam meeting in 2 days. 10/07 continue tx. plan for dc next Saturday or Saturday. 10/08 remeron increased to 30mg po qhs. increase tramadol to 100mg po prn for severe pain. 10/09 continue tx. 10/10/2024: Continue current regimen and plans Reason for continued inpatient stay Substantial Risk for: stable for discharge Time Spent With Patient Time: Total time managing care of this patient today ____ minutes.
[2024-10-10 20:00] VITALS: BP 113/62; PULSE 100; RESP 17; TEMP 36.6; O2SAT 96
[2024-10-10] MEDS: ALPRAZolam 0.5 MG TABLET 1 MG PO (20:33)
[2024-10-10] MEDS: Mirtazapine 30 MG TABLET PO (20:33)
[2024-10-10] MEDS: traMADoL HCL 50 MG TABLET 100 MG PO (20:34)
[2024-10-11 09:20] VITALS: BP 102/50; PULSE 84; RESP 16; TEMP 2.6; TEMP 36.6; O2SAT 98
[2024-10-11] MEDS: amLODIPine Besylate 10 MG TABLET PO (09:20)
[2024-10-11 09:21] VITALS: BP 102/50
[2024-10-11] MEDS: Gabapentin 300 MG CAPSULE 600 MG PO ×3 (09:21→20:00)
[2024-10-11] MEDS: Valsartan 80 MG TABLET PO (09:21)
[2024-10-11] MEDS: Famotidine 20 MG TABLET PO ×2 (09:21→20:00)
[2024-10-11] MEDS: DULoxetine HCl 60 MG CAPSULE.DR 120 MG PO (09:21)
[2024-10-11] MEDS: Albuterol Sulfate 90 MCG 8 GM INHALER 2 PUFF INHALE (09:24)
--- NOTE | 2024-10-11 12:00 | P.PNPSI_ITS ---
Subjective Subjective Date of Service: 10/11/24 Reason For Visit: Unspecified Psychosis Subjective Notes: Conditional Voluntary Interim History: Patient was seen and discussed in rounds today. Records and plans were reviewed. She has been pleasant and cooperative. Compliant with her medications. The family were wondering about possible discharge today because of snow tomorrow but I did not feel comfortable doing that so they are going to go through with it tomorrow. No changes were made today. No behavioral issues. Review of Systems Review of Systems Yes all other systems are reviewed and are negative Mental Status Exam Mental Status Exam Narrative: Appearance: wearing hospital gown, fair hygiene, in NAD Behavior: cooperative Psychomotor: no agitation or retardation noted Speech: clear, normal rate/rhythm/volume, spontaneous TP: linear TC: overwhelmed; psychosocial stressors Mood: Depressed Affect: Anxious Eye contact: Avoidant SI: passive but no intent or plan HI: none VH/AH: none Delusions: none Insight/judgment: Impaired Alert and oriented Diagnostics Vital Signs (24Hr): Vital Signs - 24 hr 10/10/24 20:00 10/11/24 09:20 10/11/24 09:20 Temperature 98 F 36.6 F L Pulse Rate 100 84 Respiratory Rate 17 16 Blood Pressure 113/62 102/50 L 102/50 L Pulse Oximetry 96 98 Oxygen Delivery Method Room Air Room Air 10/11/24 09:21 Temperature Pulse Rate Respiratory Rate Blood Pressure 102/50 L Pulse Oximetry Oxygen Delivery Method BMI result Body Mass Index 35.4 Labs 10/03/24 07:12 Medications Medications Current Medications Acetaminophen (Acetaminophen 325 Mg Tablet) 650 mg PO Q6H PRN PRN Reason: Headache/Pain Mild Scale (1-3) Acetaminophen/Butalbital/Caffeine (Butalb/Acetamin/Caff 50/325/40 Tablet) 1 tab PO Q4H PRN PRN Reason: Migraine Headache Al Hydroxide/Mg Hydroxide (Magnesium Hydrox/Alum Hydrox 30 Ml Oral.Susp) 30 ml PO Q6H PRN PRN Reason: Heartburn/Nausea Albuterol Sulfate (Albuterol Sulfate 90 Mcg 8 Gm Inhaler) 2 puff INHALE Q4H PRN PRN Reason: Shortness Of Breath Or Wheezing Last Admin: 10/11/24 09:24 Dose: 2 puff Alprazolam (Alprazolam 0.5 Mg Tablet) 1 mg PO BID PRN PRN Reason: Anxiety Last Admin: 10/10/24 20:33 Dose: 1 mg Amlodipine Besylate (Amlodipine Besylate 10 Mg Tablet) 10 mg PO DAILY [facility] Last Admin: 10/11/24 09:20 Dose: 10 mg Duloxetine HCl (Duloxetine Hcl 60 Mg Capsule.Dr) 120 mg PO DAILY [facility] Last Admin: 10/11/24 09:21 Dose: 120 mg Famotidine (Famotidine 20 Mg Tablet) 20 mg PO BID [facility] Last Admin: 10/11/24 09:21 Dose: 20 mg Gabapentin (Gabapentin 300 Mg Capsule) 600 mg PO TID [facility] Last Admin: 10/11/24 09:21 Dose: 600 mg Magnesium Hydroxide (Milk Of Magnesia 30 Ml Oral.Susp) 30 ml PO DAILY PRN PRN Reason: Constipation Mirtazapine (Mirtazapine 30 Mg Tablet) 30 mg PO BEDTIME [facility] Last Admin: 10/10/24 20:33 Dose: 30 mg Nicotine (Nicotine 21 Mg Patch.Td24) 21 mg TRANSDERMA DAILY PRN PRN Reason: smoking cessation Nicotine Polacrilex (Nicotine Polacrilex 2 Mg Gum) 4 mg BUCCAL Q2H PRN PRN Reason: Nicotine Cravings Olanzapine (Olanzapine 2.5 Mg Tablet) 2.5 mg PO TID PRN PRN Reason: agitation Last Admin: 10/08/24 21:01 Dose: 2.5 mg Tramadol HCl (Tramadol Hcl 50 Mg Tablet) 100 mg PO DAILY PRN PRN Reason: Pain, Severe (Pain Scale 7-10) Last Admin: 10/10/24 20:34 Dose: 100 mg Valsartan (Valsartan 80 Mg Tablet) 80 mg PO DAILY [facility] Last Admin: 10/11/24 09:21 Dose: 80 mg Allergies Allergies Allergy/AdvReac Type Severity Reaction Status Date / Time No Known Allergies Allergy Verified 10/02/24 23:59 Assessment & Plan Assessment & Plan (1) MDD (major depressive disorder), recurrent episode, moderate: Status: Acute Code(s): F33.1 - Major depressive disorder, recurrent, moderate Plan 10/04 continue tx. 10/06- increase cymbalta 120mg po daily. continue remeron 15mg po qhs. fam meeting in 2 days. 10/07 continue tx. plan for dc next Saturday or Saturday. 10/08 remeron increased to 30mg po qhs. increase tramadol to 100mg po prn for severe pain. 10/09 continue tx. 10/10/2024: Continue current regimen and plans 10/11/2024: Continue current regimen and plans hand discharge tomorrow Reason for continued inpatient stay Substantial Risk for: stable for discharge Time Spent With Patient Time: Total time managing care of this patient today ____ minutes.
[2024-10-11 19:56] VITALS: BP 113/57; PULSE 83; RESP 16; TEMP 36.9; O2SAT 97
[2024-10-11] MEDS: OLANZapine 2.5 MG TABLET PO (20:00)
[2024-10-11] MEDS: Mirtazapine 30 MG TABLET PO (20:00)
[2024-10-11] MEDS: ALPRAZolam 0.5 MG TABLET 1 MG PO (20:00)
[2024-10-11] MEDS: traMADoL HCL 50 MG TABLET 100 MG PO (23:54)
[2024-10-12 08:00] VITALS: BP 119/60; PULSE 83; RESP 16; TEMP 36.8; O2SAT 95
[2024-10-12 08:50] VITALS: BP 119/60
[2024-10-12] MEDS: amLODIPine Besylate 10 MG TABLET PO (08:50)
[2024-10-12 08:51] VITALS: BP 119/60
[2024-10-12] MEDS: Valsartan 80 MG TABLET PO (08:51)
[2024-10-12] MEDS: DULoxetine HCl 60 MG CAPSULE.DR 120 MG PO (08:51)
[2024-10-12] MEDS: Gabapentin 300 MG CAPSULE 600 MG PO (08:51)
[2024-10-12] MEDS: Famotidine 20 MG TABLET PO (08:51)
--- NOTE | 2024-10-12 09:52 | P.DS_ITS ---
DS: Providers Provider Date of Service: 10/12/24 Date of admission: 10/02/24 23:55 Date of discharge: 10/12/24 Primary care physician: Unknown Physician Consults: 10/03/24 00:16 Consult to Hospitalist Routine Comment: Consulting Provider: [facility] Hospitalists Reason For Exam: admission physical Discharging clinician: Venecia Luciano DS: Diagnosis Discharge Diagnosis (1) MDD (major depressive disorder), recurrent episode, moderate: Status: Acute DS: Medications Discharge Medications Home Medications: Home Medications ?Medication ?Instructions ?Recorded ?Confirmed amlodipine 10 mg-olmesartan 20 mg 1 tab PO DAILY 10/03/24 10/03/24 tablet famotidine 20 mg tablet 20 mg PO BID 10/03/24 10/03/24 Previous Rx's ?Medication ?Instructions ?Recorded albuterol sulfate 90 mcg/actuation 2 puff inhalation Q4H PRN 10/12/24 aerosol inhaler (Ventolin HFA) Shortness Of Breath Or Wheezing #6.7 grams alprazolam 1 mg tablet 1 mg PO DAILY PRN anxiety #30 tabs 10/12/24 duloxetine 60 mg capsule,delayed 120 mg (2 x 60 mg) PO DAILY #60 10/12/24 release caps gabapentin 600 mg tablet 600 mg PO TID #90 tabs 10/12/24 mirtazapine 30 mg tablet 30 mg PO BEDTIME #30 tabs 10/12/24 Mental Status Exam Mental Status Exam Narrative: Appearance: wearing hospital gown, fair hygiene, in NAD Behavior: cooperative Psychomotor: no agitation or retardation noted Speech: clear, normal rate/rhythm/volume, spontaneous TP: linear TC: overwhelmed; psychosocial stressors Mood: better Affect: congruent Eye contact: intact SI: none HI: none VH/AH: none Delusions: none Insight/judgment: fair x 2. Alert and oriented x 4. DS: Summary Hospital Course Hospital Course: Mrs. Raman is a 64 year-old woman with hx of MDD, brought to ED after she reported suicidal ideation to her daughter. In the ED, pt reported as irritable, asking to be left alone, wanting to leave hospital to go to sleep and not wake u p. She reported multiple recent psychosocial stressors including facing eviction for the first time in her life as she is behind her rent due to her daughter with whom she resides had surgery and was out of work for over a month. She had also expressed HI towards family, no one in particular but in context of if someone kev something to her she would physically defend herself. On the unit, pt presents as overwhelmed but cooperative and pleasant. Pt expressed frustration about financial stress. She reports she shares the rent with her daughter. She has [address] and her daughter pays rest of the rent. She reports her daughter was unable to work for over a month and they felt behind. She reports they receive a eviction process starting soon due to lack of payment. Pt reports she has lived in this apartment complex for several years and has never been behind. She feels as though she has done everything right and life happens. She blames herself for events outside of her control. She denies any plan or intent to harm anyone. But she is upset and overwhelmed. She endorses racing thought in the sense that she can't sleep worried about what will happen but also with some degree of anger due to feeling of injustice (always on time on rent, not getting a respite from apartment complex). No prior psych admission. No hx of VH/AH. No hx of delusions. She reports hx of trauma and was in therapy for some years but stopped after therapist left practice. No hx of suicide attempts. No hx of violence towards others. Past Psychiatric History: Inpt: none prior OP: used to have therapist Past trials: xanax, cymbalta (prescribed by PCP) Medical Evaluation Reviewed: Yes HOSPITAL COURSE On the unit, Ms. Raman was admitted on a CV and placed on 15 minutes checks for safety. Pt denied SI/HI, but did express frustration regarding multiple stressors including facing potential eviction. She does have hx of depression, trauma. She has been in therapy. Her psychotropic medications have been prescribed mostly by her PCP. We discussed risks, benefits and alternative treatment options. Pt has been on cymbalta mostly for fibromyalgia. We discussed increasing cymbalta from 90mg po daily to 120mg po daily to target both depression and neuropathic pain. We also started remeron for sleep and for depression. She tolerated the medication well and it was titrated to 30mg po qhs. She was continued oon xanax 1mg po daily prn, which she mostly used at bedtime. Her affect appeared brighter. She was visible on the unit. She denied SI/HI throughout this admission. We family meeting meeting to discuss progress and aftercare plan. Her sleep significantly improved. She attended assigned groups. There were no incidences of disruptive behaviors nor need for restraints. Pt agreed to be referred to psychiatric services including therapy and psychiatry. Status at Discharge Cognitive/behavioral status at discharge: Pt with brighter, non labile affect. No SI/HI. No VH/AH. No delusional content noted or reported. Sleeping much better. Future oriented. Functional status at discharge: uses cane/walker Overall status at discharge: patient is progressing back to baseline Time Spent with Patient Time attestation: Total time managing care of this patient today _35___ minutes. Time spent: Greater than 30 minutes Discharge Plan Discharge Anticipated Discharge Date/Time: 10/12/24 09:43 Patient Disposition: Home, Self-Care Discharge Diagnosis: MDD, recurrent, moderate Referrals: Dr. Danish Hernandez (PCP Substitute) [Other] - 10/15/24 9:00 am (Your usual PCP (Dr. Qing Roman) will be out on vacation this week, so the provider you will be seeing is . Youll be seeing him 10/15/24 at 9:00 AM. Please call the number listed if you need to change or cancel the appointment.) Yoselin Casper SHOPFITTER (Psychiatrist) [Other] - 10/23/24 2:00 pm (You will see Yoselin Casper 10/23 at 2:00pm. She will see you in person in the office for your intake appointment. You have been put on the waitlist for therapy and they will let you know when they are able to find you an appointment for that. Please call the number listed if you need to cancel or reschedule the appointment.) Discharge Medications: New albuterol sulfate [Ventolin HFA] 90 mcg/actuation Hfa Aerosol Inhaler 2 puff inhalation Q4H PRN (Reason: Shortness Of Breath Or Wheezing) Qty: 6.7 0RF duloxetine 60 mg Capsule,Delayed Release(Dr/Ec) 120 mg PO DAILY Qty: 60 0RF gabapentin 600 mg tablet 600 mg PO TID Qty: 90 0RF alprazolam 1 mg tablet 1 mg PO DAILY PRN (Reason: anxiety) Qty: 30 0RF mirtazapine 30 mg Tablet 30 mg PO BEDTIME Qty: 30 0RF Continued famotidine 20 mg tablet 20 mg PO BID amlodipine-olmesartan 10-20 mg tablet 1 tab PO DAILY Discontinued alprazolam 1 mg tablet 1 mg PO BID PRN (Reason: anxiety attack) gabapentin 600 mg tablet 600 mg PO TID duloxetine 30 mg capsule,delayed release(DR/EC) 30 mg PO DAILY albuterol sulfate 90 mcg/actuation HFA aerosol inhaler 2 puff inhalation Q4-5H PRN (Reason: Shortness Of Breath Or Wheezing) Discharge Orders: Discharge Order (Routine); Ordered 10/12/24 Ordered By: Venecia Luciano Diet: Regular diet Activity on Discharge: As tolerated Stand Alone Forms: Patient Portal Discharge page Print Language: [place] Care Plan Goals: 1. Maintain mood 2. No SI/HI Health Concerns: Follow up with PCP for routine care Plan of Treatment: 1. Take medications as prescribed. 2. Go to nearest ED or call 911 in event of emergency Assessment: Pt with brighter, non labile affect. No SI/HI. Sleep improved. Future oriented.
== END 2024-10-12 12:12 | disposition home or self-care (01) | DRG 885 ==
PROVIDERS: Psychiatry & Neurology Psychiatry; Social Worker; Admitting Provider Psychiatry & Neurology Psychiatry; Visit Provider Psychiatry & Neurology Psychiatry
DX: F33.1 Major depressive disorder, recurrent, moderate (principal); R45.851 Suicidal ideations; K21.9 Gastro-esophageal reflux disease without esophagitis; J45.909 Unspecified asthma, uncomplicated; R45.850 Homicidal ideations; M79.7 Fibromyalgia; G43.909 Migraine, unspecified, not intractable, without status migrainosus; Z79.899 Other long term (current) drug therapy
CPT/HCPCS: 36415; 70450; 80053; 80061; 82306; 82607; 82746; 83036; 84443

== ENCOUNTER 2024-10-02 23:55 | Outpatient (BNV) | payer MEDICARE, SELFPAY | END 2024-10-03 17:30 | PROVIDERS: Admitting Provider Psychiatry & Neurology Psychiatry; Visit Provider Radiology Diagnostic Radiology | DX: F29 Unspecified psychosis not due to a substance or known physiological condition (principal) | CPT/HCPCS: 70450 ==

== ENCOUNTER → 2024-10-02 23:55 | Outpatient (BNV) | payer MEDICARE, SELFPAY | PROVIDERS: Admitting Provider Psychiatry & Neurology Psychiatry; Visit Provider Social Worker | DX: F33.1 Major depressive disorder, recurrent, moderate (principal) | CPT/HCPCS: 90792; 99231; 99232; 99239 ==

== ENCOUNTER → 2024-10-02 23:55 | Outpatient (BNV) | payer MEDICARE, SELFPAY | PROVIDERS: Admitting Provider Psychiatry & Neurology Psychiatry; Visit Provider Student in an Organized Health Care Education/Training Program | DX: Z02.2 Encounter for examination for admission to residential institution (principal) | CPT/HCPCS: 99429 ==